=== PATIENT | female | born 1965 | race Caucasian/White ===

== ENCOUNTER 2016-12-22 06:31 | Emergency (ER) | payer MEDICAID ==
[~2016-12-22] VITALS: Ht 154.9 cm; Wt 54.0 kg
[2016-12-22] MEDS ORDERED: KETOROLAC 30MG/ML VIAL IV ONE (07:45)
[2016-12-22] MEDS ORDERED: SODIUM CHLORIDE 0.9% 1,000 ML IV ONE (07:56)
[2016-12-22 08:25] LABS: CLARITY URINE CLEAR (CLEAR); COLOR URINE DARK YELLOW (YELLOW); GLUCOSE URINE NEGATIVE (NEGATIVE); KETONES URINE TRACE (NEGATIVE); LEUKOCYTE ESTERASE URINE 1+ (NEGATIVE); NITRITE URINE POSITIVE (NEGATIVE); OCCULT BLOOD URINE NEGATIVE (NEGATIVE); PH URINE 5.5 (4.5-8.0); PROTEIN URINE TRACE (NEGATIVE); SPECIFIC GRAVITY URINE 1.024 (1.005-1.030); UROBILINOGEN URINE 0.2 E.U./dL (0.2-1.0)
[2016-12-22 08:41] LABS: BASOPHILS % 0.5 % (0.0-2.0); EOSINOPHILS % 0.9 % (0.0-5.0); HEMATOCRIT. 31.8 % (36.0-48.0); HEMOGLOBIN. 10.5 g/dL (12.0-16.0); LYMPHOCYTES % 39.1 % (20.0-50.0); MEAN CORPUSCULAR HEMOGLOBIN 28.7 pg (28.0-32.0); MEAN CORPUSCULAR VOLUME 86.5 fL (81.0-99.0); MEAN PLATELET VOLUME 8.1 fl (7.4-10.4); MONOCYTES % 6.5 % (2.0-8.0); PLATELET 251 x1000/uL (130-400); RED BLOOD CELL COUNT 3.68 mill/uL (4.2-5.4); RED CELL DISTRIBUTION WIDTH 14.7 % (11.6-14.6)
[2016-12-22 08:48] LABS: CHLORIDE 103 mEq/L (98-107)
[2016-12-22 08:55] LABS: CARBON DIOXIDE 27 mEq/L (21-32)
[2016-12-22 08:57] LABS: HCG SCREEN NEGATIVE
[2016-12-22 09:00] LABS: B-HCG QUANTITATIVE < 1 mIU/mL (<3)
[2016-12-22] MEDS ORDERED: ACETAMINOPHEN 325MG TABLET PO ONE (09:45)
[2016-12-22] MEDS ORDERED: POTASSIUM CHLORIDE 20MEQ TABLET SR PO ONE (10:15)
[2016-12-22] MEDS ORDERED: TRAMADOL 50MG TABLET PO ONE (10:15)
[2016-12-22 10:46] VITALS: BP 122/63
== END 2016-12-22 10:48 | disposition home or self-care (01) ==
LOC: ER 07:17
DX: N39.0 Urinary tract infection, site not specified (principal); R10.9 Unspecified abdominal pain; F17.210 Nicotine dependence, cigarettes, uncomplicated; Z87.11 Personal history of peptic ulcer disease
CPT/HCPCS: 36415; 76770; 80053; 81001; 84702; 84703; 85025; 96361; 96374; 99285; J1885; J7030; Z7610